=== PATIENT | female | born 1965 | race African-American/Black ===

== ENCOUNTER → 2016-09-25 | Day surgery (SDC) | payer OTHER ==
[~2016-09-25] MED LIST: DIAZ5 PO; LACTATED RINGER'S 1,000 ML BAG IV ONE; LORTA5 PO; MACR100C PO; PERI8.6T PO; PROPOFOL 500 MG/50 ML BTL IV ONE
--- NOTE | 2016-09-25 10:47 | GIPROC ---
[facility] [address] [facility], [address] COLONOSCOPY PROCEDURE REPORT EXAM DATE: 09/25/2016 PATIENT NAME: Deepa Sahu V MR #: [id number] BIRTHDATE: 1965 ENDOSCOPIST: Sim Winston MD ORDER #: [id number] FIELD ARTILLERY SENIOR SERGEANT: Ashlee Davila RN STATUS: outpatient INDICATIONS: The patient is a 50 yr old female here for a colonoscopy due to average risk patient for colon cancer PROCEDURE PERFORMED: Colonoscopy with polypectomy Colonoscopy with control of bleeding MEDICATIONS: None and Per Anesthesia. PREP QUALITY: good ESTIMATED BLOOD LOSS: None CONSENT: The patient understands the risks and benefits of the procedure and understands that these risks include, but are not limited to: sedation, allergic reaction, infection, perforation and/or bleeding. Alternative means of evaluation and treatment include, among others: physical exam, x-rays, and/or surgical intervention. The patient elects to proceed with this endoscopic procedure. medical equipment was checked for proper function. Hand hygiene and appropriate measures for infection prevention was taken. After the risks, benefits and alternatives of the procedure were thoroughly explained, Informed consent was verified, confirmed and timeout was successfully executed by the treatment team. A digital exam revealed no abnormalities of the rectum The EC-[id number] ([id number]) endoscope was introduced through the anus and advanced to the cecum, which was identified by both the appendix and ileocecal valve. The instrument was then slowly withdrawn as the colon was fully examined. COLON FINDINGS: Five medium sized sessile polyps were found in the transverse colon, sigmoid colon, and rectum. A polypectomy was performed with a cold snare. The resection was complete and the polyp tissue was completely retrieved. A medium sized polypoid shaped semi-pedunculated polyp was found in the proximal transverse colon. A polypectomy was performed with a cold snare. The resection was complete and the polyp tissue was completely retrieved. Bleeding at the site was controlled using hemoclips. One (1) placement was made. There was minimal blood loss from maneuver subsiding by end of procedure. Mild diverticulosis was noted at the cecum, in the ascending colon, and sigmoid colon. The colon mucosa was otherwise normal. Retroflexed views revealed no abnormalities The scope was then completely withdrawn from the patient and the procedure terminated. PROCEDURE WITHDRAWAL TIME:14.3minutes ADVERSE EVENTS: There were no complications. IMPRESSIONS: 1. Five medium sized sessile polyps were found in the transverse colon, sigmoid colon, and rectum; polypectomy was performed with a cold snare 2. A medium sized semi-pedunculated polyp was found in the proximal transverse colon; polypectomy was performed with a cold snare; bleeding at the site was controlled using hemoclips 3. Mild diverticulosis was noted at the cecum, in the ascending colon, and sigmoid colon 4. The colon mucosa was otherwise normal 5. Retroflexed views revealed no abnormalities 6. Revealed no abnormalities of the rectum RECOMMENDATIONS: 1. Await biopsy results. Biopsy results will not be ready for 7-10 days. If you don't hear from us in two weeks, call our office for results. 2. High fiber diet. Avoid nuts, seeds, and popcorn. Chew your food well. 3. Follow-up: GI Clinic PRN 4. Yearly hemoccult RECALL: Return 3 years Colonoscopy Sim Winston MD eSigned: Sim Winston MD 09/25/2016 10:46 AM cc: Lucas Flanagan PATIENT NAME: Deepa Sahu V MR#: [id number]
--- NOTE | 2016-09-25 10:48 | GIPROC ---
[facility] [address] [facility], [address] EGD PROCEDURE REPORT EXAM DATE: 09/25/2016 PATIENT NAME: Deepa Sahu V MR #: [id number] BIRTHDATE: 1965 ATTENDING: Sim Winston MD ORDER #: [id number] CYTOLOGY MANAGER: Ashlee Davila RN STATUS: outpatient INDICATIONS: The patient is a 50 yr old female here for an EGD due to history of esophageal reflux PROCEDURE PERFORMED: EGD w/ biopsy MEDICATIONS: None, Per Anesthesia, None, and Per Anesthesia. TOPICAL ANESTHETIC: CONSENT: The patient understands the risks and benefits of the procedure and understands that these risks include, but are not limited to: sedation, allergic reaction, infection, perforation and/or bleeding. Alternative means of evaluation and treatment include, among others: physical exam, x-rays, and/or surgical intervention. The patient elects to proceed with this endoscopic procedure. medical equipment was checked for proper function. Hand hygiene and appropriate measures for infection prevention was taken. After the risks, benefits and alternatives of the procedure were thoroughly explained, Informed consent was verified, confirmed and timeout was successfully executed by the treatment team. The patient was anesthetized with topical anesthesia and the EC-[id number] ([id number]) endoscope was introduced through the mouth and advanced to the second portion of the duodenum. Retroflexed views revealed no abnormalities The gastroscope was then slowly withdrawn and removed. ESOPHAGUS: The mucosa of the esophagus appeared normal. STOMACH: The mucosa of the stomach appeared normal. DUODENUM: The duodenal mucosa appeared normal. ADVERSE EVENTS: There were no complications. IMPRESSIONS: 1. The esophagus appeared normal 2. The mucosa of the stomach appeared normal 3. Normal duodenal mucosa 4. Retroflexed views revealed no abnormalities RECOMMENDATIONS: 1. Anti-reflux regimen 2. Follow-up: GI clinic PRN PATIENT CONDITION: stable DISPOSITION: Home REPEAT EXAM: Sim Winston MD eSigned: Sim Winston MD 09/25/2016 10:48 AM cc: Lucas Flanagan
== END | disposition home or self-care (01) ==
LOC: ESDC 08:36
PROVIDERS: ATTEND Internal Medicine Gastroenterology
DX: Z12.11 Encounter for screening for malignant neoplasm of colon (principal); D12.3 Benign neoplasm of transverse colon; K62.1 Rectal polyp; D12.5 Benign neoplasm of sigmoid colon; K57.90 Diverticulosis of intestine, part unspecified, without perforation or abscess without bleeding; K21.9 Gastro-esophageal reflux disease without esophagitis
CPT/HCPCS: 00740; 00810; 43239; 45385; 88305; J3010; J7120; 46930